=== PATIENT | male | born 1960 | race Caucasian/White ===

== ENCOUNTER 2016-11-02 13:43 | Emergency (ER) | payer MEDICARE ==
[~2016-11-02] VITALS: Ht 170.2 cm; Wt 71.8 kg
[2016-11-02 13:50] VITALS: BP 142/95
== END 2016-11-02 14:52 | disposition home or self-care (01) ==
LOC: EMS 13:52
DX: Z48.02 Encounter for removal of sutures (principal)
CPT/HCPCS: 99281